=== PATIENT | male | born 1960 | race Caucasian/White ===

== ENCOUNTER 2019-01-02 08:37 | Emergency (ER) | payer MEDICARE ==
[~2019-01-02] VITALS: Ht 175.3 cm; Wt 90.0 kg
[~2019-01-02 08:37] MED LIST: LISINOPRIL10 MG PO; LOPRESSOR 550 MG/TAB PO; NORCO1 TAB OR; SIMVASTATIN20 MG PO
[2019-01-02 09:03] LABS: IMMATURE GRANULOCYTES 2.1 % (0.0-5.0); MEAN CELL VOLUME 98.3 fL CALC (80.0-100.0); MEAN CORPUSCULAR HGB 32.2 pG CALC (26.0-32.0); MEAN CORPUSCULAR HGB CONC 32.8 g/L CALC (32.0-36.0); NEUT# 10.02 thou/uL (1.82-7.42); RED BLOOD COUNT 3.63 mill/uL (4.70-6.10); RED CELL DISTRI WIDTH 13.7 % (11.5-15.5)
[2019-01-02 09:05] LABS: HEMATOCRIT 35.7 % (39.0-50.0); HEMOGLOBIN 11.7 g/dl (14.0-18.0)
[2019-01-02 09:16] LABS: ANION GAP 17 (6-22 (CALC)); BUN 16 mg/dL (9-20); BUN/CREATININE RATIO 18 (12-20 (CALC)); CARBON DIOXIDE 23 mmol/l (22-30); CHLORIDE 106 mmol/l (95-108); CREATININE 0.9 mg/dL (0.7-1.3); GFR > 60 ML/MIN (>=60 (CALC)); GFR FOR AFR.AMER. > 60 ML/MIN (>=60 (CALC)); POTASSIUM 4.5 mmol/l (3.5-5.1); SODIUM 141 mmol/l (137-146)
[2019-01-02] MEDS ORDERED: ACCUPRIL5 MG PO (10:06)
[2019-01-02 11:09] VITALS: BP 121/78
== END 2019-01-02 11:18 | disposition home or self-care (01) ==
LOC: ED 08:37
PROVIDERS: Family Medicine
DX: R51 Headache (principal); F17.200 Nicotine dependence, unspecified, uncomplicated; J32.0 Chronic maxillary sinusitis

== ENCOUNTER 2022-01-03 08:12 | Emergency (ER) | payer MEDICARE ==
[~2022-01-03] VITALS: Ht 175.3 cm; Wt 120.0 kg
[~2022-01-03 08:12] MED LIST changes: +ACCUPRIL5 MG PO
[2022-01-03 08:20] VITALS: BP 158/90
[2022-01-03 08:27] VITALS: BP 158/90
[2022-01-03] MEDS ORDERED: BLOOD THINNER (08:55)
[2022-01-03] MEDS ORDERED: BACTRIM DS1 TAB PO (09:25)
== END 2022-01-03 09:39 | disposition home or self-care (01) ==
LOC: ED 08:12
PROC: 0H96XZZ Drainage of Back Skin, External Approach (ICD-10-PCS; principal; 2022-01-03)
DX: L02.212 Cutaneous abscess of back [any part, except buttock and flank] (principal); I10 Essential (primary) hypertension; I25.2 Old myocardial infarction; Z95.1 Presence of aortocoronary bypass graft